=== PATIENT | female | born 1990 | race Caucasian/White ===

== ENCOUNTER 2022-01-02 18:01 | Emergency (ER) | payer BC ==
[~2022-01-02] VITALS: Ht 170.2 cm; Wt 97.5 kg
[2022-01-02 18:36] VITALS: BP_SYST 124
[2022-01-02] MEDS ORDERED: CLIN-142 PO (21:38)
[2022-01-02] MEDS ORDERED: IBUP-1969 PO (21:38)
[2022-01-02] MEDS ORDERED: ERYEYE EACH EYE (21:38)
[2022-01-02] MEDS ORDERED: ERYTHROMYCIN BASE 0.5% EYE OINT...G. OP ONE (21:45)
[2022-01-02] MEDS ORDERED: CLINDAMYCIN HCL 150 MG CAPSULE PO ONE (21:45)
[2022-01-02 23:03] VITALS: BP_SYST 133
== END 2022-01-02 23:03 | disposition home or self-care (01) ==
LOC: SED 18:01
DX: H00.014 Hordeolum externum left upper eyelid (principal); H01.004 Unspecified blepharitis left upper eyelid; H53.8 Other visual disturbances
CPT/HCPCS: 99283

== ENCOUNTER 2022-04-24 14:29 | Emergency (ER) | payer BC ==
[~2022-04-24] VITALS: Ht 170.2 cm; Wt 97.5 kg
[~2022-04-24 14:29] MED LIST: CLIN-142 PO; ERYEYE EACH EYE; IBUP-1969 PO
[2022-04-24 14:43] VITALS: BP_SYST 138
--- NOTE | 2022-04-24 14:46 | NUR ---
Patient to ER H1 to gown for evaluation. Side rails up. Report given to JAM BOSE.
--- NOTE | 2022-04-24 14:59 | NUR ---
ER DR. PHELPS EXAMINING PT
--- NOTE | 2022-04-24 15:00 | NUR ---
Pt bib self to ER from home. CC bilateral eye pain, Pt states onset of pain began 4 months ago. Completed ABX regimen, uses compresses and progress in healing is slow. Pt requests further education of eye care.
[2022-04-24] MEDS ORDERED: ALBMDI INH (15:37)
--- NOTE | 2022-04-24 15:49 | NUR ---
Patient given written and verbal discharge instructions and verbalizes understanding. ER MD discussed with patient the results and treatment provided. Patient in stable condition. ID arm band removed. Opportunity for questions provided and answered. Medication side effect fact sheet provided.
[2022-04-24 16:01] VITALS: BP_SYST 138
== END 2022-04-24 16:01 | disposition home or self-care (01) ==
LOC: SED 14:29
DX: H00.14 Chalazion left upper eyelid (principal); H57.12 Ocular pain, left eye; J45.909 Unspecified asthma, uncomplicated; Z79.899 Other long term (current) drug therapy
CPT/HCPCS: 99281

== ENCOUNTER 2022-06-26 13:01 | Emergency (ER) | payer BC ==
[~2022-06-26] VITALS: Ht 170.2 cm; Wt 97.5 kg
[~2022-06-26 13:01] MED LIST changes: +ALBMDI INH
[2022-06-26 13:19] VITALS: BP_SYST 120
[2022-06-26] MEDS ORDERED: IPRATROPIUM/ALBUTEROL SULFATE 3 ML AMPUL.NEB (DUONEB) INH ONE (15:00)
[2022-06-26] MEDS ORDERED: predniSONE 20 MG TABLET PO ONE (15:00)
[2022-06-26] MEDS ORDERED: ALBUTEROL SULFATE 0.083% 2.5 MG/3 ML VIAL.NEB INH ONE (15:00)
[2022-06-26] MEDS ORDERED: KETOROLAC TROMETHAMINE 60 MG/2 ML VIAL IM ONE (16:15)
[2022-06-26] MEDS ORDERED: PRED20TA PO (16:35)
[2022-06-26] MEDS ORDERED: BENZ100C92 PO (16:35)
[2022-06-26] MEDS ORDERED: ALBMDI INH (16:35)
[2022-06-26] MEDS ORDERED: ACETAMINOPHEN 500 MG TABLET ONE (16:45)
[2022-06-26] MEDS ORDERED: ONDA-8 TL (16:53)
[2022-06-26] MEDS ORDERED: ACETAMINOPHEN 500 MG TABLET PO ONE (17:00)
[2022-06-26 17:23] VITALS: BP_SYST 148
== END 2022-06-26 18:50 | disposition home or self-care (01) ==
LOC: SED 13:01
DX: J40 Bronchitis, not specified as acute or chronic (principal); R06.02 Shortness of breath; R05.9 Cough, unspecified; R07.81 Pleurodynia; Z79.899 Other long term (current) drug therapy
CPT/HCPCS: 71045; 94640; 94760; 99283; 96372; J7512; J1885; J7613